=== PATIENT | male | born 1970 | race Caucasian/White ===

== ENCOUNTER 2025-05-07 16:47 | Emergency (ER) | payer MEDICAID, SELFPAY ==
[2025-05-07 16:52] VITALS: BP 134/67; PULSE 96; O2SAT 94
[2025-05-07 17:06] VITALS: BP 200/99; PULSE 64; RESP 18; TEMP 36.9; O2SAT 98; BMI 37.9
--- NOTE | 2025-05-07 17:11 | ED_ITS ---
[facility] - General Adult General Chief complaint: Overdose Stated complaint: self admin narcan post heroin use Time Seen by Provider: 05/07/25 16:50 Source: patient Mode of arrival: ambulatory Limitations: no limitations History of Present Illness ED Provider: Dr. Walker [facility] narrative: 54-year-old male This is a 54-year-old male history opioid dependence. Takes methadone presented hospital today for overdose. Patient self administer Narcan. Patient stated he did a bag of heroin at home. History is limited due to patient's symptoms. I suspect patient like opioid withdrawal from Narcan Related Data Allergies Allergy/AdvReac Type Severity Reaction Status Date / Time No Known Allergies Allergy Unverified 05/07/25 17:10 Review of Systems 2 Review of Systems: Pertinent review of systems as mentioned in [facility]. All other system otherwise negative. [facility] Past Medical History [facility] Narrative: Medical history as mentioned in [facility] Social History Social History (System 12/09/24 @ 11:50 by Ivana Champion) Advance Directives: No Advance Directives Information Provided: No Physical Exam ED Exam Exam: General: The patient appears to be vomiting, soiled in stool Head: Normacephalic, atraumatic ENT: oral mucosa moist, neck supple, no tracheal deviation Cardiovascular: regular rate, regular rhythm, no murmurs, rubbing, gallops Respiratory: CTAB, no wheeze, rales, rhonchi Gastrointestinal: Soft, non distended, non tender, non guarding Extremities: No limb pain or swelling, no calf tenderness Neurological: Awake and alert Skin: Skin does appear to be pale diaphoretic Vital Signs: Vital Signs - 24 hr 05/07/25 17:06 Temperature 98.4 F Pulse Rate 64 Respiratory Rate 18 Blood Pressure 200/99 H Pulse Oximetry 98 Oxygen Delivery Method Room Air BMI result Body Mass Index 37.9 Medical Decision Making Medical Decision Making [facility] Narrative: This is a 54-year-old male history of opioid dependence on methadone presented hospital today for vomiting and diarrhea after self administering Narcan. Patient states he did take his methadone today. He did use 1 bag of heroin however self. Patient is actively vomiting appears to be stooling on himself. Nursing staff is cleaned the patient up at this time. We will plan to give patient some IV Toradol, IV Zofran p.o. clonidine, bolus IV fluid be initiated for the patient. Obtain basic lab work and check his electrolytes. Patient does appear to be slightly pale on exam. Patient's on reassessment is feeling better at this time. Patient's lab work did not show any signs of significant abnormality. We will plan to discharge patient home. I suspect patient has Narcan wore off and he is no longer in withdrawal at this time. Patient is stable. Appears to be well. We will give patient a Narcan take home kit, I did considered having the substance use counselor see patient however patient is already following with the methadone clinic at this time for substance use Differential Diagnosis Differential Diagnoses: The differential diagnosis associated with the presentation includes Opioid overdose, opioid withdrawal, dehydration, nausea, vomiting, diarrhea Lab Data MDM Lab Attestation statement: I reviewed the patient's lab results. 05/07/25 17:12 05/07/25 17:12 Labs: Lab Results 05/07/25 05/07/25 Range/Units 17:08 17:12 WBC 8.9 (4.8-10.8) X10*3/uL RBC 3.90 L (4.60-5.80) X10*6/uL Hgb 12.4 L (14.0-18.0) g/dl Hct 36.9 L (42.0-52.0) % MCV 94.6 (80.0-98.0) fL MCH 31.8 (27.0-33.0) pg MCHC 33.6 (31.0-36.0) g/dl RDW 11.7 (11.0-16.0) % Plt Count 232 (160-400) X10*3/uL MPV 9.7 (9.4-12.4) fL Immature Gran % (Auto) 0.7 H (0.0-0.4) % Neut % (Auto) 76.4 H (45-73) % Lymph % (Auto) 17.4 L (20-40) % [place] % (Auto) 4.6 (2-11) % Eos % (Auto) 0.7 (0-4) % Baso % (Auto) 0.2 (0-2) % Lymph # (Auto) 1.6 (1.2-4.9) X10*3/uL [place] # (Auto) 0.4 (0.1-1.2) X10*3/uL Eos # (Auto) 0.1 (0.0-0.4) X10*3/uL Baso # (Auto) 0.0 (0.0-0.2) X10*3/uL Abs Immat Gran (auto) 0.06 H (0.00-0.03) X10*3/uL Absolute Neuts (auto) 6.8 (2.0-8.3) x10*3/uL Absolute Nucleated RBC 0.000 (0.0-0.012) X10*3/uL Nucleated RBC % (auto) 0.0 (0.0-0.2) /100WBC Hold Purple Top SEE NOTE Hold Blue Top SEE NOTE Sodium 144 (135-145) mmol/L Potassium 3.8 (3.3-5.1) mmol/L Chloride 106 (96-108) mmol/L Carbon Dioxide 29 (22-29) mmol/L Anion Gap 13 (12-20) BUN 17 H (9-16) mg/dL Creatinine 1.21 (0.5-1.4) mg/dL Estim Creat Clear Calc 97.1 Estimated GFR > 60 POC Glucose 136 H (60-115) mg/dL Random Glucose 146 H (60-115) mg/dL Calcium 9.6 (8.4-10.2) mg/dL Magnesium 2.0 (1.6-2.6) mg/dL Chronic Conditions Opioid dependence Social Determinants Illicit Drug usage Critical Care Time Critical Care Time Total Critical Care Time: 36 Attestation: Time is exclusive of separately billable procedures. Time includes: direct patient care, patient reassessment, coordination of patient care, interpretation of data (laboratory data, pulse oximetry, arterial blood gases and chest xrays), review of patient's medical records, medical consultation and documentation of patient care. Procedures excluded from critical care time: central intravenous line placement and electrocardiography. Discharge Plan Discharge Clinical Impression: Acute opioid withdrawal Patient Disposition: Home, Self-Care Print Language: [place]i
[2025-05-07 17:19] LABS: MANUAL DIFF FLAG NO
[2025-05-07 17:24] LABS: Hematocrit 36.9 % (42.0-52.0); Hemoglobin 12.4 g/dl (14.0-18.0); Imm Gran Abs Auto 0.06 X10*3/uL (0.00-0.03); Imm Gran Pct Auto 0.7 % (0.0-0.4); Lymphocytes Absolute Auto 1.6 X10*3/uL (1.2-4.9); Mean Corpuscular HGB Conc 33.6 g/dl (31.0-36.0); Mean Corpuscular Hemoglobin 31.8 pg (27.0-33.0); Mean Corpuscular Volume 94.6 fL (80.0-98.0); NRBC Abs Auto 0.000 X10*3/uL (0.0-0.012); NRBC Pct Auto 0.0 /100WBC (0.0-0.2); Platelet Count 232 X10*3/uL (160-400); Red Blood Count 3.90 X10*6/uL (4.60-5.80); White Blood Count 8.9 X10*3/uL (4.8-10.8)
[2025-05-07 17:24] LABS: Glucose, Whole Blood 136 mg/dL (60-115)
[2025-05-07 17:41] LABS: Anion Gap 13 (12-20); Blood Urea Nitrogen 17 mg/dL (9-16); Calcium 9.6 mg/dL (8.4-10.2); Carbon Dioxide 29 mmol/L (22-29); Chloride 106 mmol/L (96-108); Creatinine Clr Calc Pharmacy 97.1; Estimated Glomerular Filt Rate > 60; Magnesium 2.0 mg/dL (1.6-2.6); Potassium 3.8 mmol/L (3.3-5.1); Sodium 144 mmol/L (135-145)
--- NOTE | 2025-05-07 18:32 | MHC.EDTECH ---
This tech attempted to do and EKG on this pt however pt was uncooperative which led to the EKG being delayed.
[2025-05-07 18:39] VITALS: BP 164/82; PULSE 64; RESP 16; TEMP 36.9; O2SAT 98
[2025-05-07 18:46] VITALS: BP 164/82
[2025-05-07] MEDS: Naloxone HCl Nasal TAKE HOME 4 MG SPRAY 8 MG NOSTRILALT (18:50)
== END 2025-05-07 19:05 | disposition home or self-care (01) ==
PROVIDERS: Emergency Provider Student in an Organized Health Care Education/Training Program
DX: F11.23 Opioid dependence with withdrawal (principal); R11.0 Nausea; Z71.51 Drug abuse counseling and surveillance of drug abuser; Z79.899 Other long term (current) drug therapy
CPT/HCPCS: 36415; 80048; 82947; 83735; 85025; 96361; 96374; 96375; 99284; J1885; J2405